=== PATIENT | male | born 1965 | race Caucasian/White ===

== ENCOUNTER → 2019-12-05 | Outpatient (CLI) | payer BC ==
[~2019-12-05] MED LIST: MULT-246 PO; OXYC1TAB19 PO
[2019-12-05 14:39] LABS: BASO # 0.1 x10^3/uL (0.0-0.2); BASO % 1 % (0-3); EOS # 0.1 x10^3/uL (0.0-0.7); EOS % 2 % (0-3); HEMATOCRIT 41.8 % (39.0-53.0); LYMPH # 1.8 x10^3/uL (1.0-4.8); LYMPH % 21 % (24-48); MEAN CORPUSCULAR HEMOGLOBIN 31 pg (25-35); MEAN CORPUSCULAR HGB CONC 34 g/dL (31-37); MEAN CORPUSCULAR VOLUME 92 fL (79-100); MONO # 0.6 x10^3/uL (0.0-1.1); MONO % 7 % (0-9); NEUT % 70 % (31-73); PLATELET COUNT 167 x10^3/uL (140-400); RED BLOOD COUNT 4.56 x10^6/uL (4.30-5.70); RED CELL DISTRIBUTION WIDTH 13.5 % (11.5-14.5); WHITE BLOOD COUNT 8.5 x10^3/uL (4.0-11.0)
[2019-12-05 14:45] LABS: ALBUMIN 3.8 g/dL (3.4-5.0); CALCIUM 8.8 mg/dL (8.5-10.1); GFR 77.9; POTASSIUM 3.7 mmol/L (3.5-5.1)
== END | disposition home or self-care (01) ==
LOC: SURGPAT 13:37
PROVIDERS: ATTEND Surgery
DX: Z01.818 Encounter for other preprocedural examination (principal); K42.9 Umbilical hernia without obstruction or gangrene; Z88.0 Allergy status to penicillin; Z88.6 Allergy status to analgesic agent
CPT/HCPCS: 36415; 80048; 82040; 85025

== ENCOUNTER 2019-12-11 07:21 | Day surgery (SDC) | payer BC ==
[~2019-12-11] VITALS: Ht 178.4 cm; Wt 118.5 kg
[~2019-12-11 07:21] MED LIST changes: +CLINDAMYCIN 900MG PREMIX 50 ML IV PRN; +HYDROmorphone 2 MG/ML VIAL IV PRN; +IV RINGERS,LACTATED 1000ML 1,000 ML IV SCH; +LIDOCAINE 1% PF 2 ML VIAL. ID PRN; +MORPHINE SULFATE 2 MG/ML VIAL. IV PRN; +ONDANSETRON PF 4 MG/2 ML VIAL. IV PRN; -OXYC1TAB19 PO; +PROCHLORPERAZINE 10 MG/2 ML VIAL. IV PRN; +fentaNYL PF VIAL 100 MCG/2 ML VIAL IV PRN
[2019-12-11] MEDS ORDERED: BUPIVACAINE MPF 0.5% 30 ML VIAL. ONE (07:59)
[2019-12-11] MEDS ORDERED: BUPIVACAINE-EPI 0.5%-1:200000 MPF 30 ML VIAL. ONE (07:59)
[2019-12-11] MEDS ORDERED: LIDOCAINE WITH 8.4% SOD BICARB 3 ML DISP.SYRIN. ONE (08:42)
[2019-12-11 08:51] VITALS: BP 152/74
[2019-12-11] MEDS ORDERED: LIDOCAINE WITH 8.4% SOD BICARB 3 ML DISP.SYRIN. IJ ONE (09:00)
[2019-12-11] MEDS ORDERED: PROPOFOL 20 ML IV ONE (09:51)
[2019-12-11] MEDS ORDERED: LIDOCAINE 2% PF 5 ML VIAL. ONE (09:51)
[2019-12-11] MEDS ORDERED: DEXAMETHASONE SOD PHOS 4 MG/ML VIAL ONE (09:51)
[2019-12-11] MEDS ORDERED: ONDANSETRON PF 4 MG/2 ML VIAL. ONE (09:51)
[2019-12-11] MEDS ORDERED: fentaNYL PF VIAL 100 MCG/2 ML VIAL ONE ×2 (09:58→11:28)
--- NOTE | 2019-12-11 10:03 | RAD ---
Procedure: Ultrasound-guided needle localization of a left inguinal lymph node Clinical Indication: Adult male with abnormal appearing left inguinal lymph nodes Sedation: Local anesthesia only Antibiotics: None Sterility: The procedure was performed in its entirety using appropriate elements of sterile technique. Consent: The procedure was explained in its entirety to the patient or the patients designated dermatology sales representative by a member of the treatment team, including a discussion of the risks, benefits and commonly accepted alternatives to the procedure, as well as the expected consequences of no therapy whatsoever. Discussion of the risks included, but was not limited to, those that are most frequent and those that are rare but possibly severe or life-threatening, as well as the possibility of unforeseen complications. Technique and Findings: Following informed consent, the patient was prepped and draped in usual sterile fashion. Ultrasound interrogation of the left groin revealed multiple abnormal appearing left inguinal lymph nodes. 1% lidocaine was used to achieve local anesthesia over this area. A small dermatotomy was made. Under ultrasound guidance, a localization needle was directed towards the most prominent and superficial abnormal appearing target lymph node and deployed. This needle was then covered with a Styrofoam cup and left in place as the patient was taken to the OR. Complications: No immediate Impression: 1. Ultrasound-guided needle localization of a left inguinal lymph node as described.
[2019-12-11] MEDS ORDERED: SEVOFLURANE 61 TO 120 MINUTES. IH ONE (10:23)
[2019-12-11] MEDS ORDERED: OXYC1TAB19 PO (11:13)
--- NOTE | 2019-12-11 11:15 | DISCH ---
DISCHARGE INSTRUCTIONS Condition on Discharge Condition on Discharge: Stable Activity After Discharge Activity Instructions for Disc: Activity as tolerated, Avoid exertion Lifting Instructions after Dis: No heavy lifting Driving Instructions after Dis: Do not drive (3-4 days) Diet after Discharge Diet after Discharge: Regular Wound Incision Care Wound/Incision Care: Ice to area for comfort Other wound/incision instructi: february shower Wednesday Follow-Up Follow up with: Bill next week LOUIS SEAMAN MD Dec 11, 2019 11:15
--- NOTE | 2019-12-11 11:20 | PDOC ---
BRIEF OPERATIVE NOTE Date: Dec 11, 2019 Pre-Op Diagnosis umbilical hernia bilateral inguinal lymphadenopathy Post-Op Diagnosis same Procedure Performed primary repair umbilical hernia left inguinal LN biopsy after needle localization Surgeon Bill BRANTLEY Anesthesia Type: General Blood Loss 10cc IV Fluid 550xx Specimens Obtained hernia sack, left inguinal LN Findings protruding pre peritoneal fat, inguinal adenopathy Complications none LOUIS SEAMAN MD Dec 11, 2019 11:20
[2019-12-11] MEDS: fentaNYL PF VIAL 100 MCG/2 ML VIAL IV PRN ×2 (11:30→11:40)
[2019-12-11] MEDS ORDERED: oxyCODONE/APAP 7.5/325 1 TAB TABLET PO ONE (11:45)
--- NOTE | 2019-12-11 12:11 | OP ---
DATE OF SURGERY: 12/11/2019 PREOPERATIVE DIAGNOSES: Umbilical hernia, bilateral inguinal lymphadenopathy. POSTOPERATIVE DIAGNOSES: Umbilical hernia, bilateral inguinal lymphadenopathy. PROCEDURE: Primary repair of umbilical hernia, left inguinal lymph node biopsy after localization. SURGEON: Vikas Seaman MD CHEESE COOK: FERCHO Adams ANESTHESIA: General LMA. BLOOD LOSS: 10 mL. INTRAVENOUS FLUIDS: 550 mL. INDICATIONS: The patient is an obese 54-year-old with bilateral inguinal lymphadenopathy and an umbilical hernia. He is brought for repair of his hernia and biopsy of a node in his left groin. OPERATIVE REPORT: The patient went to the radiology suite where he underwent localization of the largest lymph node in the left groin with needle placement. He was brought to the OR, given a general LMA and the abdomen and left groin were prepped and draped in usual sterile fashion. An infraumbilical incision was infiltrated with local anesthetic, incised and dissection carried down to the anterior sheath. The umbilical skin was freed from the hernia and the contents reduced. The small defect was then closed primarily with a running stitch of 0 PDS tied in the middle. A second row of 0 Vicryl was used to reinforce the repair. When hemostasis was present and a correct sponge count obtained, the umbilical skin was tacked to the underlying repair with 3-0 Vicryl. Subcutaneous approximated with 3-0 Vicryl, skin closed with a subcuticular 4-0 Monocryl. We then turned our attention to the left groin where the localization wire resided. An incision in the crease was infiltrated with local anesthetic, incised and the localization wire delivered into the wound. Dissection was carried down to the wire to the point where we could see and feel the enlarged lymph node. This was then harvested using the LigaSure for hemostasis. Area checked for adequate hemostasis and when present and a correct sponge count was obtained, some Denisha was sprinkled in the wound and the subcutaneous approximated with 3-0 Vicryl. Skin closed with subcuticular 4-0 Monocryl. Steri-Strips and sterile dressings applied to both incisions. Abdominal binder placed. The patient was awakened from his anesthetic and taken to the recovery room in satisfactory condition. VIKAS SEAMAN MD DR: KALLI/herman JOB#: [id number] / [id number]
[2019-12-11 12:16] VITALS: BP 137/70
--- NOTE | 2019-12-13 15:07 | PATHOLOGY ---
[facility] Accession Number: [id number] . 01 Material submitted: . PART A: lymph node - LEFT INGUINAL LYMPH NODE. Modifiers: left, inguinal PART B: hernia - UMBILICAL HERNIA SAC . 01 Clinical history: . Left groin lymph node. . 02 Diagnosis: A. Lymph node, left inguinal lymph node excisional biopsy: - Nonspecific reactive lymphoid hyperplasia, mixed pattern. . B. Segments of fibromembranous and fibroadipose tissue, umbilical hernia repair: - Hernia sac. . (RAHEEMM:lorenzo; 12/13/2019) MBR 12/13/2019 1031 Local . 02 Comment: Sections of the left inguinal lymph node excisional biopsy reveal an enlarged lymph node. There is preservation of the lymph node architecture. There are lymphoid follicles within the cortex which possess reactive germinal centers surrounded by a mantle of small lymphocytes. There are multiple foci of paracortical expansion. These areas have a mottled appearance and are composed predominantly of small lymphocytes with admixed reticulum cells. There is mild sinus histiocytosis. The medullary cords are composed of small lymphocytes and admixed plasma cells. There are no granulomas. There are no cells foreign to the lymph node. . A portion of the lymph node submitted for flow cytometric analysis has a viability of 95.8%. T-cells comprise 75% of lymphoid cells which show a CD4/CD8 ratio of 22.7 without overt phenotypic abnormality. NK-cells comprise 1% of lymphoid cells. Mature B-cells comprise 23% of lymphoid cells and are polyclonal with a kappa:lambda ratio of 1.5. There is no evidence of a B cell non-Hodgkin lymphoma. Although the T cells show an increased CD4:CD8 ratio, the otherwise normal immunophenotype among both the CD4 positive and CD8 positive T-cells suggests a benign/reactive process. . The morphologic and immunophenotypic findings are supportive of the diagnosis of nonspecific reactive lymphoid hyperplasia, mixed pattern. . (JPM:kiln car unloader; 12/13/2019) . 02 Electronically signed: . Chava Laurent MD, Pathologist NPI- [id number] . 01 Gross description: . A. Part A is received fresh and is labeled "left inguinal lymph node" and consists of a slightly firm, dark red lymph node which measures 3.0 x 1.5 x 1.2 cm. The specimen is bisected and it reveals slightly firm, pink-red tissue. A healthcare sales representative portion of the specimen is finely minced and submitted in RPMI for flow cytometry studies. Touch preps are made of the bisected lymph node. The remainder of the specimen is all submitted in A1-A2. (SKM/db; 12/11/2019) . B. The specimen is received in formalin, labeled "Rin, Boyd, umbilical hernia sac" and consists of 3 segments of pink-leon membranous tissue with attached yellow lobulated tissue measuring 4.8 x 2.6 x 1.0 cm. Sectioning reveals no gross lesions and healthcare sales representative tissue is submitted in B1. (SDY; 12/11/2019) . Touch preps performed by Dr. Harding at [facility], [address] [place] [id number]. SYU/SYU 12/13/2019 1023 Local . 02 Pathologist provided ICD-10: R59.9, K44.9 . 02 CPT . 383211, [id number] Specimen Comment: A courtesy copy of this report has been sent to [phone], [phone] Specimen Comment: [id number] Specimen Comment: Report sent to / DR RODRIGUEZ Performed at: 01 [facility] [address], [place], [place] [id number] MD Aftab Quiles MD Phone: [phone] Performed at: 02 [facility] [address] [place], [place] [id number] MD Chava Laurent MD Phone: [phone]
== END 2019-12-11 12:48 | disposition home or self-care (01) ==
LOC: SURG 07:21 → EDUNIT# 09:30 → SURG 12:48
PROVIDERS: ATTEND Surgery
DX: K42.9 Umbilical hernia without obstruction or gangrene (principal); R59.1 Generalized enlarged lymph nodes; K44.9 Diaphragmatic hernia without obstruction or gangrene; F41.9 Anxiety disorder, unspecified; F19.90 Other psychoactive substance use, unspecified, uncomplicated; E66.9 Obesity, unspecified; Z68.37 Body mass index [BMI] 37.0-37.9, adult; Z87.891 Personal history of nicotine dependence; Z72.89 Other problems related to lifestyle
CPT/HCPCS: 38500; 49585; 76942; 88184; 88185; A7015; C1892; J1100; J2001; J2405; J2704; J3010; J3490